=== PATIENT | female | born 1985 | race Caucasian/White ===

== ENCOUNTER 2020-08-29 05:51 | Day surgery (SDC) | payer OTHER ==
[2020-08-29] MEDS ORDERED: Lactated Ringers 1,000 ML IV ONE (06:15)
[2020-08-29] MEDS ORDERED: CEFAZOLIN 2 GM-D5W BAG** 2 GM/50 ML ML IV SCH (06:30)
[2020-08-29] MEDS ORDERED: Lactated Ringers 1,000 ML IV SCH (06:30)
[2020-08-29] MEDS ORDERED: Sensorcaine 0.25% 10 ML ONE (06:36)
[2020-08-29] MEDS ORDERED: Versed 2 MG/2 ML Injection ONE (07:51)
[2020-08-29] MEDS ORDERED: Zofran 4 MG/2 ML VIAL ONE (07:52)
[2020-08-29] MEDS ORDERED: DIPRIVAN 200 MG/20 ML IV ONE (07:52)
[2020-08-29] MEDS ORDERED: Decadron 4 MG INJ ONE ×3 (07:52→08:06)
[2020-08-29] MEDS ORDERED: SUBLIMAZE 100 MCG/2 ML ONE ×3 (07:52→08:45)
[2020-08-29] MEDS ORDERED: Zemuron 100 MG/10 ML ONE (07:54)
[2020-08-29 10:19] VITALS: BP 138/78; PULSE 83; O2SAT 98
[2020-08-29 14:29] LABS: Appearance SLIGHTLY CLOUDY (CLEAR); Bacteria RARE /HPF (NEGATIVE); Bilirubin NEGATIVE (NEGATIVE); Blood NEGATIVE Ery/ul (0-5); Epithelial Cells RARE /HPF (FEW); Glucose NEGATIVE (NEGATIVE); Ketones NEGATIVE (NEGATIVE); Leukocyte Esterase NEGATIVE (NEGATIVE); Mucus SLIGHT /HPF (NEGATIVE); Nitrite NEGATIVE (NEGATIVE); Protein,Urine Dip NEGATIVE (Negative); Urobilinogen NEGATIVE mg/dL (0-1)
--- NOTE | 2020-08-30 07:54 | OP ---
SURGERY DATE/TIME: 08/29/2020 0750 PREOPERATIVE DIAGNOSIS: Multiparity desiring tubal sterilization. POSTOPERATIVE DIAGNOSIS: Multiparity desiring tubal sterilization. PROCEDURE: Laparoscopic tubal sterilization via Falope ring application. SURGEON: Kam Yadav D.O. TIMBER CUTTER: Fausto Sanders set up mold technician. ANESTHESIA: General. ESTIMATED BLOOD LOSS: Minimal. COMPLICATIONS: None. INDICATIONS: The risks, benefits, indications and alternatives of the procedure were reviewed with the patient prior to the procedure. The patient understood the risk of infection, bleeding, bowel injury, bladder injury, ureteral injury, uterine perforation, pelvic infection, possible ectopic , possible and irregular bleeding that may be associated with this procedure. However desires to have this procedure as a possible means to alleviate her current medical condition. DESCRIPTION OF PROCEDURE AND FINDINGS: At this point the patient is taken to the operating room, given general sedation, placed in dorsal lithotomy position. Prepped and draped in the usual sterile fashion. A weighted speculum is then placed in the patient's vagina and the anterior lip of the cervix is grasped with a single tooth tenaculum. Endocervical dilators were advanced through the endocervical canal as a means to dilate the cervix and the uterine manipulator was then inserted into the uterus as a means to manipulate the uterus. Attention was then turned to the patient's abdomen where a 5 mm skin incision was made in the umbilical fold where a 5 mm trocar and sleeve were advanced under direct visualization where pneumoperitoneum was obtained with 4 liters of CO2 gas. I surveyed the patient's pelvis and abdomen and revealed normal anatomy with no gross abnormality was noted. An additional incision was made 2 cm above the symphysis pubis where an 8 mm trocar and sleeve were advanced under direct visualization and was done so without complication. From this point the Falope ring applicator was then placed through the trocar site where the right isthmic region of the fallopian tube was grasped and the Falope ring was applied without complication in knuckle-like fashion. The Falope ring applicator was reloaded and the left fallopian tube identified and on the isthmic region the Falope ring applicator was applied to it displaying a knuckle-like region for sterilization. From this point a survey once again in the pelvic and abdominal region appeared to be within normal limits and at this point all instruments were then removed from the patient's abdomen. The patient's incisions were closed with 4-0 Monocryl suture. The patient was then taken out of anesthesia and was then taken to the recovery room in stable condition. All instruments and laps were accounted for x2.
== END 2020-08-29 10:30 | disposition home or self-care (01) ==
LOC: SDC 05:51
PROVIDERS: ATTEND Obstetrics & Gynecology
DX: Z30.2 Encounter for sterilization (principal)
CPT/HCPCS: 81001; 84703; 87086; J0690; J1100; J2250; J2405; J2704; J3010

== ENCOUNTER 2023-10-19 10:09 | Emergency (ER) | payer OTHER ==
[2023-10-19 10:26] VITALS: RESP 20; TEMP 97.7
[2023-10-19 10:37] LABS: Absolute Neutrophil Ct (ANC) 9.89 x10^3/uL (1.56-6.13); BASOPHIL % 0.5 % (0.1-1.2); Basophil (Absolute #) 0.07 x10^3/uL (0.01-0.08); Eosinophil % 0.4 % (0.7-5.8); Eosinophil (Absolute #) 0.06 x10^3/uL (0.04-0.36); Hematocrit 39.1 % (34.1-44.9); Hemoglobin 12.9 g/dL (11.2-15.7); IMMATURE GRAN # 0.04 x10^3u/L (0.001-0.031); IMMATURE GRAN % 0.3 % (0.001-0.429); Lymphocyte (Absolute #) 1.68 x10^3/uL (1.18-3.74); Lymphocytes % 12.1 % (19.3-51.7); Mean Cell Volume 93.3 fL (79.4-94.8); Mean Corpuscular Hemoglobin 30.8 pg (25.6-32.2); Monocyte (Absolute #) 2.17 x10^3/uL (0.24-0.86); Monocytes % 15.6 % (4.7-12.5); Neutrophil % 71.1 % (34.0-71.1); Platelet Count 287 x10^3/uL (182-369); Red Blood Count 4.19 x10^6/uL (3.93-5.22); Red Cell Distribution Width 12.2 % (11.7-14.4); White Blood Count 13.9 x10^3/uL (3.98-10.04)
--- NOTE | 2023-10-19 10:44 | ERPHSYRPT ---
- History of Present Illness Time Seen by Provider: 10/19/23 10:31 Source: patient Exam Limitations: no limitations Patient Subjective Stated Complaint: Pt states "I had a UTI a couple weeks ago and finished those antibiotics, then I got horrible diarrhea and my urine is c loutdy again and I am running a fever at home.:" Triage Nursing Assessment: Pt presented alert and oriented X 3, skin wpd. pt ambulates with an upright steady gait, able to speak in clear full sentences. PT resting comfortably Physician History: Patient here with abdominal pain, diarrhea, flank pain, UTI-like symptoms. Patient states that she was partially treated for an UTI about a month ago. She does not remember the name of this antibiotic, she was only on it for 3 days. Records indicate that this was Macrobid. States that she has had fever, some nausea, not feeling well for the past 2 days. Therefore, presents to the emergency department today. She has no cold-like symptoms, no cough, cold, congestion. States that its all abdominal and flank pain with nausea. Diarrhea has been nonbloody. Hemodynamically stable, history of tubal ligation. Allergies/Adverse Reactions: No Known Drug Allergies Allergy (Verified 10/17/23 11:18) Home Medications: Dextroamphetamine/Amphetamine [Adderall 5 mg Tablet] 5 mg PO BID 10/19/23 [History] Hx Tetanus, Diphtheria Vaccination/Date Given: Yes Hx Influenza Vaccination/Date Given: Yes Hx Pneumococcal Vaccination/Date Given: No Immunizations Up to Date: No Travel Risk - International Travel Have you traveled outside of the country in past 3 weeks: No - Emerging Infectious Disease Are you exhibiting symptoms associated with any current EIDs: Yes Symptoms: Diarrhea - Past Medical History Pertinent Past Medical History: Yes Neurological History: No Pertinent History ENT History: No Pertinent History Cardiac History: No Pertinent History Respiratory History: No Pertinent History Endocrine Medical History: No Pertinent History Musculoskeletal History: Arthritis, Fractures GI Medical History: No Pertinent History History: No Pertinent History Psycho-Social History: No Pertinent History Female Reproductive Disorders: Other Other Medical History: PCOS, - Past Surgical History Past Surgical History: Yes Neuro Surgical History: No Pertinent History Cardiac: No Pertinent History Respiratory: No Pertinent History Gastrointestinal: No Pertinent History Genitourinary: No Pertinent History Musculoskeletal: Other Female Surgical History: Tubal Ligation Other Surgical History: left elbow, right wrist right knee, orbital cheek nose pelvis, rods in pelvis, small plate in knee - Female History Hx Last Menstrual Period: 09/26/2023 Hx Now: No - Social History Smoking Status: Never smoker Exposure to second hand smoke: Yes Drug Use: none Patient Lives Alone: No - Social Determinants of Health Will the patient participate in the screening: Yes Do you worry about a steady place to live?: No Do you have any problems with any of the following?: No known problems In the past 12 months,have you had to go without utilities?: No Transportation Issues: No Has anyone in your support network made you feel unsafe?: No Have you or anyone in your house had to go without enough: No - Nursing Vital Signs Nursing Vital Signs: Initial Vital Signs Blood Pressure 118/90 10/19/23 10:20 O2 Sat by Pulse Oximetry 98 10/19/23 10:20 Pain Scale Pain Intensity 0 - Physical Exam SpO2 Interpretation: normal SpO2: 100 Comments: 10/19/23 10:43 Review of Systems Constitutional: Negative for fever. HENT: Negative for congestion. Respiratory: Negative for shortness of breath. Cardiovascular: Negative for chest pain. Gastrointestinal: Abdominal pain, nausea, flank pain Genitourinary: Negative for dysuria. Musculoskeletal: Negative for back pain. Skin: Negative for rash. Neurological: Negative for headaches. Psychiatric/Behavioral: Negative for behavioral problems. All other systems reviewed and are negative. Physical Exam Vitals signs and nursing note reviewed. Constitutional: Appearance: Patient is well-developed. HENT: Head: Normocephalic and atraumatic. Eyes: Conjunctiva/sclera: Conjunctivae normal. Neck: Musculoskeletal: Normal range of motion. Trachea: No tracheal deviation. Cardiovascular: Rate and Rhythm: Normal rate. Pulmonary: Effort: Pulmonary effort is normal. No respiratory distress. Abdominal: Palpations: Abdomen is soft. Right flank tenderness, no rebound, guarding. No overlying skin changes. Musculoskeletal: General: No deformity. Skin: General: Skin is warm and dry. Neurological/ Psychiatric: Mental Status: Mental status, behavior, interaction with environment is appropriate for patient's age and condition - Course Nursing assessment & vital signs reviewed: Yes Ordered Tests: Active Orders 24 hr Category Date Time Status IV Insertion STAT Care 10/19/23 10:20 Completed ABDOMEN AND PELVIS W CONTRAST [CT] Stat Exams 10/19/23 10:36 Completed BMP Stat Lab 10/19/23 10:35 Completed CBC W DIFF Stat Lab 10/19/23 10:35 Completed CULTURE,URINE Stat Lab 10/19/23 10:35 Received CULTURE,URINE Stat Lab 10/19/23 12:17 Received HCG QUALITATIVE, URINE Stat Lab 10/19/23 10:35 Completed LIPASE Stat Lab 10/19/23 10:35 Completed TROPONIN Q4H Lab 10/19/23 10:35 Completed UA W/RFX UR CULTURE Stat Lab 10/19/23 10:35 Completed UA W/RFX UR CULTURE Stat Lab 10/19/23 12:17 Completed Medication Summary Discontinued Medications Generic Name Dose Route Start Last Admin Trade Name Freq PRN Reason Stop Dose Admin Sodium Chloride 1,000 mls @ 999 mls/hr 10/19/23 10:35 10/19/23 12:18 Sodium Chloride 0.9% 1000 Ml IV 10/19/23 11:35 Infused .Q1H1M STA Infusion Ceftriaxone Sodium 1 gm in 100 mls @ 200 mls/hr 10/19/23 10:36 10/19/23 12:18 Rocephin 1 Gm / 100 Ml Nacl IV 10/19/23 11:05 Infused STAT ONE Infusion Sodium Chloride Confirm 10/19/23 11:04 Sodium Chloride 0.9% 1000 Ml Administered 10/19/23 11:05 Dose 1,000 mls @ ud .ROUTE .STK-MED ONE Ceftriaxone Sodium Confirm 10/19/23 11:05 Rocephin 1 Gm / 100 Ml Nacl Administered 10/19/23 11:06 Dose 1 gm in 100 mls @ ud IV .STK-MED ONE Ketorolac Tromethamine 30 mg 10/19/23 10:35 10/19/23 11:11 Ketorolac Tromethamine 30 Mg/Ml Inj IV 10/19/23 10:36 30 mg STAT ONE Administration Ketorolac Tromethamine Confirm 10/19/23 11:05 Ketorolac Tromethamine 30 Mg/Ml Inj Administered 10/19/23 11:06 Dose 30 mg .ROUTE .STK-MED ONE Ondansetron HCl 4 mg 10/19/23 10:35 10/19/23 11:09 Ondansetron Hcl 4 Mg/2 Ml Vial IV 10/19/23 10:36 4 mg STAT ONE Administration Ondansetron HCl Confirm 10/19/23 11:05 Ondansetron Hcl 4 Mg/2 Ml Vial Administered 10/19/23 11:06 Dose 4 mg .ROUTE .STK-MED ONE Lab/Rad Data: Laboratory Result Diagrams 10/19/23 10:35 10/19/23 10:35 Laboratory Results 10/19/23 10/19/23 10/19/23 Range/Units 12:17 10:35 10:35 WBC (3.98-10.04) x10^3/uL RBC (3.93-5.22) x10^6/uL Hgb (11.2-15.7) g/dL Hct (34.1-44.9) % MCV (79.4-94.8) fL MCH (25.6-32.2) pg MCHC (32.2-35.5) g/dL RDW (11.7-14.4) % Plt Count (182-369) x10^3/uL MPV (9.4-12.3) fL Gran % (34.0-71.1) % Immature Gran % (Auto) (0.001-0.429) % Nucleat RBC Rel Count (0.00-0.2) % Eos # (Auto) (0.04-0.36) x10^3/uL Immature Gran # (Auto) (0.001-0.031) x10^3u/L Absolute Lymphs (auto) (1.18-3.74) x10^3/uL Absolute Monos (auto) (0.24-0.86) x10^3/uL Absolute Nucleated RBC (0.00-0.012) x10^3u/L Lymphocytes % (19.3-51.7) % Monocytes % (4.7-12.5) % Eosinophils % (0.7-5.8) % Basophils % (0.1-1.2) % Absolute Granulocytes (1.56-6.13) x10^3/uL Basophils # (0.01-0.08) x10^3/uL Sodium 139 (135-145) mmol/L Potassium 3.9 (3.5-5.1) mmol/L Chloride 103 (98-107) mmol/L Carbon Dioxide 26 (22-30) mmol/L Anion Gap 13.8 (5-15) MEQ/L BUN 8 (7-17) mg/dL Creatinine 0.72 (0.52-1.04) mg/dL Estimated GFR 111.1 ML/MIN Glucose 105 (74-106) mg/dL Calcium 9.3 (8.4-10.2) mg/dL Troponin I (0.000-0.033) ng/mL Lipase (23-300) U/L Urine Color Dark Yellow A (Yellow) Urine Appearance Turbid A (Clear) Urine pH 5.0 (4.6-8.0) Ur Specific [place] >=1.030 A (1.005-1.030) Urine Protein 100 A (Negative) Urine Glucose (UA) Negative (Negative) mg/dL Urine Ketones Trace A (Negative) Urine Blood Moderate A (Negative) Urine Nitrite Positive A (Negative) Urine Bilirubin Negative (Negative) Urine Urobilinogen 1.0 A (0.2) mg/dL Ur Leukocyte Esterase Moderate A (Negative) U Hyaline Cast (Auto) NONE SEEN (0-2) /LPF Urine Microscopic RBC 21-50 A (0-5) /HPF Urine Microscopic WBC >100 A (0-5) /HPF Ur Epithelial Cells Few (None Seen) /HPF Urine Bacteria Many A (None Seen) /HPF Urine Culture Reflexed ORDERED SEPARATELY (NO) Urine HCG, Qual (NEGATIVE) Influenza Type A Ag NEGATIVE (NEGATIVE) Influenza Type B Ag NEGATIVE (NEGATIVE) RSV (PCR) NEGATIVE (NEGATIVE) SARS-CoV-2 (PCR) NEGATIVE (NEGATIVE) Slides for Path Review 10/19/23 10/19/23 10/19/23 Range/Units 10:35 10:35 10:35 WBC (3.98-10.04) x10^3/uL RBC (3.93-5.22) x10^6/uL Hgb (11.2-15.7) g/dL Hct (34.1-44.9) % MCV (79.4-94.8) fL MCH (25.6-32.2) pg MCHC (32.2-35.5) g/dL RDW (11.7-14.4) % Plt Count (182-369) x10^3/uL MPV (9.4-12.3) fL Gran % (34.0-71.1) % Immature Gran % (Auto) (0.001-0.429) % Nucleat RBC Rel Count (0.00-0.2) % Eos # (Auto) (0.04-0.36) x10^3/uL Immature Gran # (Auto) (0.001-0.031) x10^3u/L Absolute Lymphs (auto) (1.18-3.74) x10^3/uL Absolute Monos (auto) (0.24-0.86) x10^3/uL Absolute Nucleated RBC (0.00-0.012) x10^3u/L Lymphocytes % (19.3-51.7) % Monocytes % (4.7-12.5) % Eosinophils % (0.7-5.8) % Basophils % (0.1-1.2) % Absolute Granulocytes (1.56-6.13) x10^3/uL Basophils # (0.01-0.08) x10^3/uL Sodium (135-145) mmol/L Potassium (3.5-5.1) mmol/L Chloride (98-107) mmol/L Carbon Dioxide (22-30) mmol/L Anion Gap (5-15) MEQ/L BUN (7-17) mg/dL Creatinine (0.52-1.04) mg/dL Estimated GFR ML/MIN Glucose (74-106) mg/dL Calcium (8.4-10.2) mg/dL Troponin I < 0.012 (0.000-0.033) ng/mL Lipase (23-300) U/L Urine Color Dark Yellow A (Yellow) Urine Appearance Turbid A (Clear) Urine pH 5.5 (4.6-8.0) Ur Specific [place] 1.020 (1.005-1.030) Urine Protein 100 A (Negative) Urine Glucose (UA) Negative (Negative) mg/dL Urine Ketones Trace A (Negative) Urine Blood Moderate A (Negative) Urine Nitrite Positive A (Negative) Urine Bilirubin Small A (Negative) Urine Urobilinogen 1.0 A (0.2) mg/dL Ur Leukocyte Esterase Large A (Negative) U Hyaline Cast (Auto) NONE SEEN (0-2) /LPF Urine Microscopic RBC 11-20 A (0-5) /HPF Urine Microscopic WBC >100 A (0-5) /HPF Ur Epithelial Cells Many A (None Seen) /HPF Urine Bacteria Many A (None Seen) /HPF Urine Culture Reflexed YES (NO) Urine HCG, Qual NEGATIVE (NEGATIVE) Influenza Type A Ag (NEGATIVE) Influenza Type B Ag (NEGATIVE) RSV (PCR) (NEGATIVE) SARS-CoV-2 (PCR) (NEGATIVE) Slides for Path Review 10/19/23 10/19/23 Range/Units 10:35 10:35 WBC 13.9 H (3.98-10.04) x10^3/uL RBC 4.19 (3.93-5.22) x10^6/uL Hgb 12.9 (11.2-15.7) g/dL Hct 39.1 (34.1-44.9) % MCV 93.3 (79.4-94.8) fL MCH 30.8 (25.6-32.2) pg MCHC 33.0 (32.2-35.5) g/dL RDW 12.2 (11.7-14.4) % Plt Count 287 (182-369) x10^3/uL MPV 10.0 (9.4-12.3) fL Gran % 71.1 (34.0-71.1) % Immature Gran % (Auto) 0.3 (0.001-0.429) % Nucleat RBC Rel Count 0.0 (0.00-0.2) % Eos # (Auto) 0.06 (0.04-0.36) x10^3/uL Immature Gran # (Auto) 0.04 H (0.001-0.031) x10^3u/L Absolute Lymphs (auto) 1.68 (1.18-3.74) x10^3/uL Absolute Monos (auto) 2.17 H (0.24-0.86) x10^3/uL Absolute Nucleated RBC 0.00 (0.00-0.012) x10^3u/L Lymphocytes % 12.1 L (19.3-51.7) % Monocytes % 15.6 H (4.7-12.5) % Eosinophils % 0.4 L (0.7-5.8) % Basophils % 0.5 (0.1-1.2) % Absolute Granulocytes 9.89 H (1.56-6.13) x10^3/uL Basophils # 0.07 (0.01-0.08) x10^3/uL Sodium (135-145) mmol/L Potassium (3.5-5.1) mmol/L Chloride (98-107) mmol/L Carbon Dioxide (22-30) mmol/L Anion Gap (5-15) MEQ/L BUN (7-17) mg/dL Creatinine (0.52-1.04) mg/dL Estimated GFR ML/MIN Glucose (74-106) mg/dL Calcium (8.4-10.2) mg/dL Troponin I (0.000-0.033) ng/mL Lipase 44 (23-300) U/L Urine Color (Yellow) Urine Appearance (Clear) Urine pH (4.6-8.0) Ur Specific [place] (1.005-1.030) Urine Protein (Negative) Urine Glucose (UA) (Negative) mg/dL Urine Ketones (Negative) Urine Blood (Negative) Urine Nitrite (Negative) Urine Bilirubin (Negative) Urine Urobilinogen (0.2) mg/dL Ur Leukocyte Esterase (Negative) U Hyaline Cast (Auto) (0-2) /LPF Urine Microscopic RBC (0-5) /HPF Urine Microscopic WBC (0-5) /HPF Ur Epithelial Cells (None Seen) /HPF Urine Bacteria (None Seen) /HPF Urine Culture Reflexed (NO) Urine HCG, Qual (NEGATIVE) Influenza Type A Ag (NEGATIVE) Influenza Type B Ag (NEGATIVE) RSV (PCR) (NEGATIVE) SARS-CoV-2 (PCR) (NEGATIVE) Slides for Path Review YES - Progress Progress: improved Progress Note: 10/19/23 10:44 Differential diagnosis includes kidney stone, compression fracture, infection, UTI, triple AAA - basic labs including: CBC, lipase, CMP, UA - insert IV for symptom management - consider imaging: CT ab/pelvis or U/S Reevaluation Patient feels improved with medication. Labs demonstrate UTI. Initial UA did have "many" epithelial cells in it. Therefore we did do a straight cath in order to ensure an accurate urine sample for urine culture. Urine culture sent, UA still had some epithelial cells in it unfortunately. Either way, we will follow-up on culture results to guide antibiotic management. Patient given her first dose of antibiotics in the emergency department, ceftriaxone. Will discharge patient home on Bactrim. Patient CT scan is consistent with pyelonephritis. Most likely the cause of patient's flank pain and symptoms today. Patient incidentally also found an ovarian cyst on CT scan. I did discuss this with the patient she is aware and will follow-up with an ultrasound as an outpatient in 1 to 2 weeks to ensure that cyst has improved. I did go over the risk factors for ovarian torsion and reasons to return to the emergency department. Patient will return here sooner for any new or changing symptoms. Counseled pt/family regarding: lab results, diagnosis, need for follow-up, rad results - Departure Departure Disposition: Home Clinical Impression: Pyelonephritis of right kidney, Right ovarian cyst Condition: Stable Critical Care Time: No Referrals: ALF THRASHER MD [Primary Care Provider] - Follow up/PCP as directed Instructions: Urinary Tract Infection, Adult ED Prescriptions: Smz/Tmp Ds Tablet [Bactrim Ds Tablet] 1 udtab PO BID 10 Days #20 tablet
[2023-10-19 10:48] LABS: HCG URINE TEST NEGATIVE (NEGATIVE)
[2023-10-19] MEDS ORDERED: Sodium Chloride 0.9% 1000 ML 1,000 ML ONE (11:04)
[2023-10-19 11:05] LABS: Appearance Turbid (Clear); Bacteria Many /HPF (None Seen); Bilirubin Small (Negative); Blood Moderate (Negative); Epithelial Cells Many /HPF (None Seen); Glucose, Urine Negative (Negative); Ketones Trace (Negative); Leukocyte Esterase Large (Negative); Nitrite Positive (Negative); Ph 5.5 (4.6-8.0); Protein,Urine Dip 100 (Negative); WBC >100 /HPF (0-5)
[2023-10-19] MEDS ORDERED: ROCEPHIN 1 GM / 100 ML NaCl 1 GM/100 ML IVPB IV ONE (11:05)
[2023-10-19] MEDS ORDERED: Zofran 4 MG/2 ML VIAL ONE (11:05)
[2023-10-19] MEDS ORDERED: TORAdol 30 mg Injection ONE (11:05)
[2023-10-19 11:06] LABS: ADD URINE CULTURE? YES (NO)
[2023-10-19] MEDS: Zofran 4 MG/2 ML VIAL IV ONE (11:09)
[2023-10-19] MEDS: Sodium Chloride 0.9% 1000 ML 1,000 ML IV STA (11:09)
[2023-10-19 11:10] LABS: Hyaline Casts NONE SEEN /LPF (0-2)
[2023-10-19] MEDS: TORAdol 30 mg Injection IV ONE (11:11)
[2023-10-19 11:13] LABS: INFLUENZA A NEGATIVE (NEGATIVE); INFLUENZA B NEGATIVE (NEGATIVE); RESPIRATORY SYNCTIAL VIRUS NEGATIVE (NEGATIVE); SARS-CoV-2 Xpert Express NEGATIVE (NEGATIVE)
[2023-10-19] MEDS: ROCEPHIN 1 GM / 100 ML NaCl 1 GM/100 ML IVPB IV ONE (11:21)
[2023-10-19 11:26] LABS: Slide Review 1 YES
[2023-10-19 11:37] VITALS: BP 116/90; PULSE 72
[2023-10-19 11:55] LABS: ANION GAP 13.8 MEQ/L (5-15); Calcium 9.3 mg/dL (8.4-10.2); Creatinine 1 0.72 mg/dL (0.52-1.04); EST GLOMERULAR FILTRATION RATE 111.1 ML/MIN; Potassium 3.9 mmol/L (3.5-5.1)
[2023-10-19 12:31] LABS: Appearance Turbid (Clear); Bacteria Many /HPF (None Seen); Bilirubin Negative (Negative); Blood Moderate (Negative); Epithelial Cells Few /HPF (None Seen); Glucose, Urine Negative (Negative); Hyaline Casts NONE SEEN /LPF (0-2); Ketones Trace (Negative); Leukocyte Esterase Moderate (Negative); Nitrite Positive (Negative); Protein,Urine Dip 100 (Negative); RBC 21-50 /HPF (0-5); Specific Gravity >=1.030 (1.005-1.030); WBC >100 /HPF (0-5)
[2023-10-19 12:42] LABS: ADD URINE CULTURE? ORDERED SEPARATELY (NO)
--- NOTE | 2023-10-19 12:49 | XRAY ---
CLINICAL HISTORY: Acute pyelonephritis COMPARISON: No previous studies available for comparison TECHNIQUE: Contrast-enhanced CT of the abdomen and pelvis was performed in axial plane with reconstructed coronal and sagittal images. One of the following dose reduction techniques was utilized for this exam: Automated exposure control, adjustment of the mA and/or kV according to patient size, and use of iterative reconstruction. FINDINGS: A metallic fixation is noted along the pubic bones on both sides and sacroiliac joints degrading the image quality. The liver is enlarged in size and shows regular margins. No focal or diffuse parenchymal abnormality. No hepatic mass is identified. The portal vein, intrahepatic biliary radicals, and the bile ducts are normal. Gall bladder appears normal with wall thickness. No radio-opaque calculus or pericholecystic fluid is identified. Common bile duct appears normal. Pancreas appears normal. No peripancreatic fat stranding, pancreatic pseudocyst, or peripancreatic fluid collection. Spleen is normal in size, no mass is seen. Both adrenal glands are unremarkable. The right kidney shows patchy areas of low attenuation at the lower kidney pole could be suggestive of focal pyelonephritis for clinical correlation. Associated circumferential thickening of the proximal ureteric wall showing contrast enhancement and surrounded by significant fat stranding suggestive of urethritis. Mild right perinephric free fluid associated with fat stranding. No right kidney significant hydronephrosis. No significant hydroureter The left kidney is normal in size, shape, and orientation. No calculi, cyst mass, or hydronephrosis. The left ureter and urinary bladder appear normal. Stomach and small bowel loops are unremarkable. The caecum and ileocecal junction appear normal. Probable few non-complicated colonic diverticulae are noted Normal appearing appendix. No evidence of significant enlargement of the mesenteric or retroperitoneal lymph nodes. Urinary bladder, uterus, and adnexa are unremarkable. Suggestion of corpus luteum cyst in right ovary measuring about 15 x 18 mm. Mild amount of free fluid in pelvis Multiple pelvic phleboli. Metallic fixation of the pelvic bones is noted ( both superior/inferior pubic rami and both sacroiliac joints ). Visualized thoracic and lumbar spine appear normal. No lytic or sclerotic bone lesions in visualized bones. IMPRESSION: 1. The right kidney shows patchy areas of low attenuation concerning for pyelonephritis. Suggested clinical correlation. Associated circumferential thickening of the proximal ureteric wall showing contrast enhancement and surrounded by significant fat stranding suggestive of urethritis. Mild right perinephric free fluid associated with significant fat stranding. 2. Normal appearing appendix. 3. Suggestion of corpus luteum cyst in right ovary measuring about 15 x 18 mm. Mild amount of free fluid in pelvis. Needs ultrasound correlation. 4. Metallic fixation of the pelvic bones is noted ( both superior/inferior pubic rami and both sacroiliac joints ). [facility] was called at [phone] at 11:40 AM HOME APPRAISER, 10/19/2023 and Manuela TREJO was informed regarding the presence of Significant Medical Findings in the report. Electronically Signed by: Serge To MD. (10/19/2023 12:45:47 EDT)
[2023-10-19 12:55] VITALS: O2SAT 100
== END 2023-10-19 13:03 | disposition home or self-care (01) ==
LOC: ED 10:09
DX: N12 Tubulo-interstitial nephritis, not specified as acute or chronic (principal); N83.201 Unspecified ovarian cyst, right side; R10.9 Unspecified abdominal pain; R19.7 Diarrhea, unspecified; R50.9 Fever, unspecified; Z79.899 Other long term (current) drug therapy
CPT/HCPCS: 0241U; 36000; 36415; 74177; 80048; 81001; 81025; 83690; 84484; 85025; 87077; 87086; 87186; 96360; 96374; 96375; 99284; J0696; J1885; J2405

== ENCOUNTER 2023-12-02 08:31 | Day surgery (SDC) | payer OTHER ==
[~2023-12-02 08:31] MED LIST: Lactated Ringers 1,000 ML IV SCH
[2023-12-02] MEDS ORDERED: KEFZOL 1 GM/50 ML PREMIX** 1 GM/50 ML IVPB IV ONE (08:37)
[2023-12-02] MEDS ORDERED: Transderm Scop 1.5MG Patch ONE (08:37)
[2023-12-02] MEDS ORDERED: Lactated Ringers 1,000 ML IV ONE (08:37)
[2023-12-02] MEDS: Transderm Scop 1.5MG Patch TOP ONE (08:42)
[2023-12-02] MEDS: KEFZOL 1 GM/50 ML PREMIX** 1 GM/50 ML IVPB IV SCH (08:42)
[2023-12-02] MEDS: Lactated Ringers 1,000 ML IV SCH (08:42)
[2023-12-02 08:49] LABS: HCG URINE TEST NEGATIVE (NEGATIVE)
[2023-12-02 08:51] VITALS: O2SAT 100
[2023-12-02 09:14] LABS: Absolute Neutrophil Ct (ANC) 2.36 x10^3/uL (1.56-6.13); Basophil (Absolute #) 0.05 x10^3/uL (0.01-0.08); Eosinophil (Absolute #) 0.76 x10^3/uL (0.04-0.36); Hematocrit 38.6 % (34.1-44.9); Hemoglobin 12.7 g/dL (11.2-15.7); IMMATURE GRAN # 0.01 x10^3u/L (0.001-0.031); IMMATURE GRAN % 0.2 % (0.001-0.429); Lymphocytes % 29.5 % (19.3-51.7); Mean Cell Volume 91.7 fL (79.4-94.8); Mean Corpuscular Hemoglobin 30.2 pg (25.6-32.2); Mean Corpuscular Hgb Concent. 32.9 g/dL (32.2-35.5); Mean Platelet Volume 10.6 fL (9.4-12.3); Monocytes % 7.9 % (4.7-12.5); Neutrophil % 46.4 % (34.0-71.1); Platelet Count 311 x10^3/uL (182-369); Red Blood Count 4.21 x10^6/uL (3.93-5.22); Red Cell Distribution Width 12.7 % (11.7-14.4); White Blood Count 5.1 x10^3/uL (3.98-10.04)
[2023-12-02] MEDS ORDERED: Versed 2 MG/2 ML Injection ONE (09:54)
[2023-12-02] MEDS ORDERED: SUBLIMAZE 100 MCG/2 ML ONE (09:54)
[2023-12-02] MEDS ORDERED: TORAdol 30 mg Injection ONE (09:55)
[2023-12-02] MEDS ORDERED: Xylocaine-Mpf 2% 5 Ml Vial ONE (09:55)
[2023-12-02] MEDS ORDERED: Zofran 4 MG/2 ML VIAL ONE (09:55)
[2023-12-02] MEDS ORDERED: DIPRIVAN 200 MG/20 ML IV ONE (09:55)
[2023-12-02] MEDS ORDERED: Decadron 4 MG INJ ONE (09:55)
[2023-12-02 10:29] LABS: Free T4 1.11 ng/dL (0.78-2.19); Vitamin D Total 60.4 ng/mL (30-100)
[2023-12-02 11:01] LABS: ALBUMIN 4.5 g/dL (3.5-5.0); ANION GAP 13.8 MEQ/L (5-15); BILIRUBIN,TOTAL 0.6 mg/dL (0.2-1.3); Calcium 9.8 mg/dL (8.4-10.2); Creatinine 1 0.71 mg/dL (0.52-1.04); EST GLOMERULAR FILTRATION RATE 112.9 ML/MIN; FREE TRIODOTHYRONINE 4.51 pg/mL (2.77-5.27); Ferritin 31.4 ng/mL (6.24-137); Potassium 4.4 mmol/L (3.5-5.1); TSH, 3RD Generation 1.263 mIU/L (0.470-4.680); Total Protein 7.5 g/dL (6.3-8.2)
[2023-12-02 11:20] VITALS: RESP 16
[2023-12-02 11:38] VITALS: BP 115/93; PULSE 60; TEMP 98.1
[2023-12-03 13:08] LABS: Insulin 3.9 uIU/mL (2.6-24.9); Prolactin 14.3 ng/mL (4.8-33.4)
[2023-12-03 13:55] LABS: FSH 6.2 mIU/mL (.); Progesterone 0.1 ng/mL (.)
--- NOTE | 2023-12-04 12:00 | OP ---
SURGERY DATE/TIME: 12/02/2023 7652 - 4108 PREOPERATIVE DIAGNOSIS: Menorrhagia. POSTOPERATIVE DIAGNOSIS: Menorrhagia. PROCEDURE: Hysteroscopy, dilation and curettage with endometrial ablation. SURGEON: Josh Yadav D.O. NET DEVELOPER SOFTWARE ENGINEER C: Elizabeth Cabral ANESTHESIA: General. ESTIMATED BLOOD LOSS: Minimal. COMPLICATIONS: None. FINDINGS: The risks, benefits, indications, and alternatives of the procedure were reviewed with the patient prior to the procedure. Patient understood the risk of infection, bleeding, bowel injury, bladder injury, ureteral injury, uterine perforation, pelvic infection, thromboembolic disorder associated with the surgery and desires to have the surgery as a possible means to alleviate her current medical condition. DESCRIPTION OF PROCEDURE AND FINDINGS: At this point, patient was taken to the operating room, given general sedation, placed in the dorsal lithotomy position, prepped and draped in the usual sterile fashion. A weighted speculum was then placed in the patient's vagina, and the anterior lip of the cervix was grasped with a single tooth tenaculum. Endocervical dilators were advanced through the endocervical canal as a means to dilate the cervix and at this point, a 5 mm hysteroscope was then placed through the endocervical region toward the uterine cavity where visualization appeared to be within normal limits with no gross abnormality that was noted within the uterine cavity. From this point, the hysteroscope was removed, and a curette was then placed into the fundus of the uterus and curettage was performed. All quadrants of the uterus were treated, retrieving a moderate amount of tissue. After this point, The NovaSure instrument was then taken and was entered through the endocervical region toward the fundal region, retracted approximately 1 cm with an in depth of 6.5 cm and the width of 2.7 cm. The machine was turned on for an ablative time of 27 seconds. After complete ablation, the instrument was disengaged and removed from the uterine cavity without complication. From this point, all other instruments were removed from the patient's vaginal region. The patient was then taken out of the dorsal lithotomy position and was taken out of anesthesia, was then taken to the recovery room in stable condition. All instruments and laps were accounted for x2.
== END 2023-12-02 11:53 | disposition home or self-care (01) ==
LOC: SDC 08:31
PROVIDERS: ATTEND Obstetrics & Gynecology
DX: N92.0 Excessive and frequent menstruation with regular cycle (principal)
CPT/HCPCS: 36415; 80053; 80061; 81025; 82306; 82607; 82670; 82728; 83001; 83525; 83721; 84144; 84146; 84270; 84402; 84403; 84439; 84443; 84481; 85025; 86376; J0690; J1100; J1885; J2250; J2405; J2704; J3010; A9270-GY